=== PATIENT | female | born 1980 | race Caucasian/White ===

== ENCOUNTER → 2016-07-14 | Outpatient (CLI) | payer OTHER ==
[~2016-07-14] MED LIST: AMITRYPTYLINE PO; BACLOFEN10 MG PO; BENTYL20 M1 PO; DULCOLAX5 M1 PO; METOPROLOL SUCC25 MG PO; NABUMETONE PO; NEURONTIN100 MG PO; OMEPRAZOLE40 M1 PO; PRILOSEC20 MG; TOPAMAX; TOPAMAX PO; TOPAMAX50 MG PO; VITAMIN D2000 UNIT; WELLBUTRIN PO; ZOFRAN PO; ZOLOFT PO; ZOMIG5 MG
--- NOTE | ~2016-07-14 | MR17 ---
[facility] A Service of [facility] RADIOLOGY TEXT RESULTS PATIENT: JOSH MOON LOCATION: CEEG : 80 UNIT #: [id number] AGE: [address]: HUYEN DEE SEX: F ORDER DR: [id number] [facility] [address] [place], [place] [address] [id number] O MR#: [id number] Acc #: [id number] NAME: JOSH MOON : 1980 SEX: F STUDY DATE/TIME: 07/14/2016 10:12 UNIT: CEEG ROOM: STUDY DESCRIPTION: MR Brain WWo Contrast Attending Physician: Huyen Dee M.D. Referring Physician: Huyen Dee M.D. Ordering Physician: Physician Non-Staff Primary Care Physician: Stephanie Fuentes M.D. MRI CENTER REPORT This report is preliminary unless electronic signature is present. EXAM Brain MR with and without contrast. COMPARISON Prior brain MRI dated 02/26/[address] dated 02/29/2012. CLINICAL HISTORY New onset seizure June 08, 2016, with a fall at that time with closed head injury, chronic history of migraines, and first order relatives, father, with history of seizure disorder. PROCEDURE Routine brain MR with and without contrast including seizure protocol imaging. FINDINGS There is no MR evidence of any restricted diffusion. The brain is structurally normal and brain parenchymal signal is within normal limits. There is no hydrocephalus or extraaxial fluid collection and normal flow voids are seen in the cerebral vessels. The extracranial structures are normal and bone marrow signal is normal. The hippocampal formations are normal and symmetric in size and signal, and postcontrast images show no mass or abnormal enhancement. IMPRESSION Normal brain MR with and without contrast with normal seizure protocol imaging. Dictated by... Yoel Ragsdale M.D. [facility] A Service of [facility] RADIOLOGY TEXT RESULTS PATIENT: JOSH MOON LOCATION: CEEG : 80 UNIT #: [id number] AGE: [address]: HUYEN DEE SEX: F ORDER DR: THIS IS AN ELECTRONICALLY VERIFIED REPORT Yoel Ragsdale M.D. at 07/16/2016 2:18 PM ANGELITO/merlin TD: 07/14/2016 16:59 JOB #: [id number] MRI CENTER REPORT Page 1 of 1 COPY
--- NOTE | ~2016-07-14 | EE ---
Unit #: [id number] #: [id number] Patient: JOSH MOON [id number] [address] [address] [id number] O MR#: [id number] NAME: JOSH MOON : 1980 SEX: F STUDY DATE/TIME: 07/14/2016 UNIT: CEEG ROOM: STUDY DESCRIPTION: EEG Attending Physician: Huyen Kenny M.D. Referring Physician: Huyen Kenny M.D. Primary Care Physician: Stephanie Fuentes M.D. NEURODIAGNOSTICS REPORT EXAM EEG. [facility]. REASON FOR STUDY Seizures. TECHNICAL INFORMATION This is a routine EEG performed using the standard international 10-20 system of electrode placement. Photic stimulation was performed. Hyperventilation was also performed. REPORT Throughout the entire study, the best background rhythm appears to be 9 Hz. This rhythm is seen in both posterior head regions symmetrically and does attenuate to eye opening and closure. Photic stimulation was performed, which did not elicit any epileptiform abnormalities. Hyperventilation was also performed, which did not elicit any abnormal buildup. Throughout the entire study there were no electrographic seizures recorded, nor does there appear to be any independent epileptiform abnormalities seen. There was no sleep recorded during the EEG. INTERPRETATION This is a normal awake EEG. A normal EEG does not rule out the possibility of a seizure disorder. Clinical correlation is advised. Dictated by... Carmine Chadwick II., M.D. GWS/andrey TD: 07/16/2016 13:50 JOB #: [id number] Unit #: [id number] #: [id number] Patient: JOSH MOON NEURODIAGNOSTICS REPORT Page 1 of 1 X NEURODIAGNOSTICS REPORT
[2016-07-14 13:42] LABS: POC - CREATININE 0.79 mg/dL (0.44-1.03); POC - GFR >60.0 mL/min (>60)
== END | disposition home or self-care (01) ==
LOC: CEEG 06:31
PROVIDERS: Internal Medicine Sleep Medicine
DX: R56.9 Unspecified convulsions (principal)
CPT/HCPCS: 70553; 82565; 95816; A9577